=== PATIENT | female | born 1940 | race Two or more races ===

== ENCOUNTER 2020-03-21 16:48 | Emergency (ER) | payer MEDICARE, OTHER ==
[~2020-03-21] VITALS: Ht 157.5 cm; Wt 53.5 kg
--- NOTE | 2020-03-21 17:00 | NUR ---
PT ANGELLA FROM [facility]. PER REPORT FROM MEDICS, PT HAD A GROUND LEVEL FALL FROM THE FACILITY AND HIT THE BACK OF HER HEAD. PT HAS A DRIED SCAB NOTED ON THE BACK OF THE HEAD. PT DENIES ANY PAIN OR DISCOMFORT AT THIS TIME. VS CHECKED. AWAITING MD SALAZAR.
--- NOTE | 2020-03-21 17:10 | NUR ---
PT WAS SEEN BY
--- NOTE | 2020-03-21 17:32 | NUR ---
PT OUT FOR CT SCAN OF THE HEAD
--- NOTE | 2020-03-21 18:24 | NUR ---
CALLED DR VELAZQUEZ FOR A PEER TO PEER WITH THE PA. LEFT A MESSAGE. AWAITING HIS CALL BACK
--- NOTE | 2020-03-21 18:45 | NUR ---
CALLED [facility] FOR BLS TRANSFER ETA 45MINS.
--- NOTE | 2020-03-21 18:53 | NUR ---
REPORT GIVEN TO DARREN DEAL AT [facility] FOR CONTINUITY OF CARE . AMBULANCE ET IS 45 MINUTES
--- NOTE | 2020-03-21 19:17 | NUR ---
REPORT GIVEN TO [facility] EMT BALDO FOR MOUNIKA
--- NOTE | 2020-03-21 19:18 | NUR ---
Patient discharged to SNF in stable condition. Written and verbal after care instructions given to snf rn and emt. verbalizes understanding of instruction.
[2020-03-21 19:20] VITALS: BP 121/71
== END 2020-03-21 19:20 | disposition home or self-care (01) ==
LOC: ER 16:54
DX: S00.01XA Abrasion of scalp, initial encounter (principal); M54.2 Cervicalgia; F03.90 Unspecified dementia, unspecified severity, without behavioral disturbance, psychotic disturbance, mood disturbance, and anxiety; J44.9 Chronic obstructive pulmonary disease, unspecified; F41.9 Anxiety disorder, unspecified; I12.9 Hypertensive chronic kidney disease with stage 1 through stage 4 chronic kidney disease, or unspecified chronic kidney disease; E11.22 Type 2 diabetes mellitus with diabetic chronic kidney disease; N18.9 Chronic kidney disease, unspecified; W19.XXXA Unspecified fall, initial encounter; Y93.89 Activity, other specified; Y92.098 Other place in other non-institutional residence as the place of occurrence of the external cause; Y99.8 Other external cause status
CPT/HCPCS: 70450; 72125; 99285; A6403

== ENCOUNTER 2020-08-27 17:15 | Inpatient (IN) | payer MEDICARE, OTHER ==
[~2020-08-27] VITALS: Ht 160 cm; Wt 51.3 kg
--- NOTE | 2020-08-27 17:27 | NUR ---
DR. GRIGGS AT BS FOR EVAL.
--- NOTE | 2020-08-27 17:37 | NUR ---
[facility] FOR "INCREASED CONFUSION" NOTED TODAY. PT AAOX2, VSS. RR EVEN & UNLABORED. DENIES CP, SOB, DIZZINESS, N/V AT THIS TIME. PLACED ON NETWORK DESIGNER, SR. WILL CONT TO MONITOR.
[2020-08-27] MEDS ORDERED: FAMO20TA8 PO (17:40)
[2020-08-27] MEDS ORDERED: MAGN400O6 PO (17:40)
[2020-08-27] MEDS ORDERED: MAG-55 PO (17:40)
[2020-08-27] MEDS ORDERED: TEMA15CA5 PO (17:40)
[2020-08-27] MEDS ORDERED: DOCU-141 PO (17:40)
[2020-08-27] MEDS ORDERED: ACET325T53 PO (17:40)
[2020-08-27] MEDS ORDERED: LOSA25TA27 PO (17:40)
[2020-08-27] MEDS ORDERED: LATA2.5D15 OP (17:40)
[2020-08-27] MEDS ORDERED: LEVE500T9 PO (17:40)
[2020-08-27] MEDS ORDERED: NA P133E RC (17:40)
[2020-08-27] MEDS ORDERED: BISA10SU11 RC (17:40)
[2020-08-27] MEDS ORDERED: AMLO10TA4 PO (17:40)
[2020-08-27] MEDS ORDERED: OLAN5TAB3 PO (17:40)
[2020-08-27 17:42] LABS: BASOPHILS # (AUTO) 0.1 /CMM (0.0-0.2); BASOPHILS % (AUTO) 0.8 % (0.0-2.0); EOSINOPHILS % (AUTO) 1.3 % (0.0-6.0); HEMATOCRIT 42 % (33-45); HEMOGLOBIN 13.6 g/dL (11.5-14.8); LYMPHOCYTES # (AUTO) 2.3 /CMM (0.8-4.8); LYMPHOCYTES % (AUTO) 32.3 % (20.0-44.0); MEAN CORPUSCULAR HGB CONC 33 g/dl (31.0-36.0); MEAN CORPUSCULAR VOLUME 90 fL (82-100); MONOCYTES # (AUTO) 0.6 /CMM (0.1-1.30); MONOCYTES % (AUTO) 8.6 % (2.0-12.0); NEUTROPHILS # (AUTO) 4.1 /CMM (1.8-8.9); PLATELET COUNT (AUTO) 305 /CMM (150-450); WHITE BLOOD COUNT (AUTO) 7.2 K/uL (4.3-11.0)
[2020-08-27 18:08] LABS: ALANINE AMINOTRANSFERASE 27 U/L (12-78); ALBUMIN 3.6 g/dL (3.4-5.0); ALCOHOL, BLOOD < 3 mg/dL (0-0); ALKALINE PHOSPHATASE 63 U/L (46-116); ASPARTATE AMINOTRANSFERASE 19 U/L (15-37); BILIRUBIN,DIRECT 0.1 mg/dL (0.0-0.2); BILIRUBIN,TOTAL 0.1 mg/dL (0.2-1.0); CALCIUM, SERUM 8.9 mg/dL (8.5-10.1); CARBON DIOXIDE 28 mmol/L (21-32); CHLORIDE 105 mmol/L (98-107); CREATININE 0.8 mg/dL (0.6-1.3); GLUCOSE 110 mg/dL (74-106); POTASSIUM 4.1 mmol/L (3.5-5.1); SODIUM SERUM 143 mmol/L (136-145); TOTAL PROTEIN, SERUM 7.9 g/dL (6.4-8.2); UREA NITROGEN, BLOOD 26 mg/dL (7-18)
[2020-08-27 18:09] LABS: ACETAMINOPHEN 0 ug/ml (10-30)
--- NOTE | 2020-08-27 18:26 | NUR ---
urine collected and taken to the lab
--- NOTE | 2020-08-27 18:45 | NUR ---
CALLED [employer] SUBSTATION OPERATOR APPRENTICE FOR EVAL. ETA 1 HOUR.
[2020-08-27] MEDS ORDERED: NA PHOS,M-B/NA PHOS,DI-BA 1 EA ENEMA RC PRN (19:00)
[2020-08-27] MEDS ORDERED: BISACODYL SUPP (10 MG) 10 MG/SUPP.RECT SUPP.RECT RC PRN (19:00)
[2020-08-27] MEDS ORDERED: MAGNESIUM HYDROXIDE 30 ML UDC PO PRN ×2 (19:00→22:30)
[2020-08-27 19:08] LABS: BILIRUBIN,URINE NEGATIVE (NEGATIVE); COLOR,URINE YELLOW (YELLOW); LEUKOCYTE ESTERASE ,URINE SMALL (NEGATIVE); NITRITE, URINE NEGATIVE (NEGATIVE); PH,URINE 6.5 (5.0-8.0); PROTEIN,URINE NEGATIVE (NEGATIVE); UGLUCOSE NEGATIVE (NEGATIVE); UROBILINOGEN,URINE 0.2 EU/dL (0.2)
[2020-08-27 19:18] LABS: BACTERIA,URINE RARE /HPF (None Seen); SQUAMOUS EPITHELIAL CELL,UR 0-2 /HPF (None Seen)
--- NOTE | 2020-08-27 20:12 | NUR ---
F/U CBC WITH LAB, STATES MACHINE UNDER MAINTENANCE, SPOKE TO ÁNGEL, WILL BE RELEASED BY CLS IN 5MINS
--- NOTE | 2020-08-27 21:00 | NUR ---
REPORT GIVEN, PT TRANSFERED.
[2020-08-27 21:46] VITALS: BP 136/81
[2020-08-27] MEDS ORDERED: MAG HYDROX/AL HYDROX/SIMETH 30 ML UDC PO PRN (22:30)
[2020-08-27] MEDS ORDERED: BLOOD SUGAR DIAGNOSTIC 1 EACH STRIP IN ONE (22:30)
[2020-08-27] MEDS ORDERED: LORAZEPAM 0.5 MG TABLET PO PRN (22:30)
--- NOTE | 2020-08-27 22:34 | NUR ---
RN NOTES : NOTIFY SUPERVISIOR FOR MED LATOANOPROST EYE DROPS NOT AVAILABLE AT THIS TIME, PER SUPERVISIOR I WILL CHECK AND CALL BACK IF MEDS AVILABLE ,
[2020-08-27] MEDS ORDERED: LATANOPROST EYE DROP 0.005% 2.5 ML BOTTLE ONE (23:07)
[2020-08-27] MEDS: LATANOPROST EYE DROP 0.005% 2.5 ML BOTTLE OP SCH (23:16)
--- NOTE | 2020-08-27 23:23 | NUR ---
ADMISSION NOTES: ADMITTED THIS 79Y/O FEMALE PATIENT ADMIT FROM [facility] ER /INTIALLY FROM [facility] , PT. ADMITTED TO GPS ON 5150 GD HOLD , PER HOLD, INCREASED CONFUSION AND NON COMPLIANT WITH MEDICATION WANDERS AT THE FACILITY,UPON FACE TO FACE ASSESSMENT PATIENT IS A&O X 1,2 ,DISORGNIZED,DISORIENTED DISHELVED, BLUNTED AFFECT COOPERTIVE AT THIS TIME ,DENIES SI /HI AT THIS TIME, PT. IS POOR HISTORIAN, POOR INSIGHT ,POOR JUDGEMENT , PT. REFUSED TO SIGNS ADMISSION CONSENT PAPERS ,DUE TO CONFUSED, BOTH MD AWARE AND NOTIFIED OF THE ADMISSION, BELONGINGS CONTRABAND WERE DONE ,PT. RIGHTS DISCUSS BY WAREHOUSE FREIGHT HANDLER , PROVIDE THE PT. WITH HANDBOOK, AND MEDICATIONS GUIDE, ENVIRONMENTAL SAFETY CHECK DONE, ENCOURAGED PT. VERBALIZED ANY FEELING CONCERN TO STAFF, ORIENT TO UNIT POLICY, NO ACUTE DISTRESS NOTED,VITAL SIGNS WNL ,DENIES ANY PAIN AT THIS TIME,WILL CONTINUE TO MONITOR FOR Q15 SAFETY AND BEHAVIOR.
[2020-08-28 08:00] VITALS: BP 124/64
[2020-08-28] MEDS: LEVETIRACETAM (250 MG) 250 MG TABLET PO SCH ×2 (09:54→18:10)
[2020-08-28] MEDS: LOSARTAN POTASSIUM 25 MG TABLET PO SCH (09:55)
[2020-08-28] MEDS: FAMOTIDINE (20 MG) 20 MG TABLET PO SCH (09:55)
[2020-08-28] MEDS: DOCUSATE SODIUM 100 MG CAPSULE PO SCH (09:55)
[2020-08-28] MEDS: AMLODIPINE BESYLATE 10 MG TABLET PO SCH (09:56)
[2020-08-28 16:00] VITALS: BP 100/76
--- NOTE | 2020-08-28 16:28 | NUR ---
WALKING ABOUT UNIT,CONFUSED,BUT MED COMPLIANT.
[2020-08-28] MEDS: OLANZAPINE 5 MG TABLET PO SCH (18:10)
[2020-08-28] MEDS: DIVALPROEX SODIUM 125 MG TABLET.DR PO SCH ×2 (18:10→21:15)
[2020-08-28] MEDS: ACETAMINOPHEN 325 MG TABLET PO PRN (19:43)
[2020-08-28 19:58] VITALS: BP 109/67
--- NOTE | 2020-08-28 19:58 | NUR ---
GPS RN NOTES: PATIENT C/O HEADACHE. TYLENOL 325MG 2TABS/650MG GIVEN PO PRN ORDERED AT 1944. WILL CONTINUE TO MONITOR.
[2020-08-28] MEDS: LATANOPROST EYE DROP 0.005% 2.5 ML BOTTLE OP SCH (21:17)
[2020-08-29 06:38] LABS: BASOPHILS # (AUTO) 0.1 /CMM (0.0-0.2); BASOPHILS % (AUTO) 1.1 % (0.0-2.0); EOSINOPHILS % (AUTO) 3.3 % (0.0-6.0); HEMATOCRIT 40 % (33-45); HEMOGLOBIN 12.8 g/dL (11.5-14.8); LYMPHOCYTES # (AUTO) 2.3 /CMM (0.8-4.8); LYMPHOCYTES % (AUTO) 44.4 % (20.0-44.0); MEAN CORPUSCULAR HGB CONC 32 g/dl (31.0-36.0); MEAN CORPUSCULAR VOLUME 92 fL (82-100); MONOCYTES # (AUTO) 0.7 /CMM (0.1-1.30); MONOCYTES % (AUTO) 12.9 % (2.0-12.0); NEUTROPHILS % (AUTO) 38.3 % (43.0-81.0); PLATELET COUNT (AUTO) 258 /CMM (150-450); RED BLOOD CELL COUNT(AUTO) 4.31 MIL/uL (4.0-5.2); WHITE BLOOD COUNT (AUTO) 5.2 K/uL (4.3-11.0)
--- NOTE | 2020-08-29 06:42 | NUR ---
GPS RN CLOSING NOTES: PATIENT SLEEPING COMFORTABLY IN BED. SLEPT 6HR THIS SHIFT. MED COMPLIANT THIS SHIFT. NO S/S OF DISTRESS. RESPIRATION EVEN AND UNLABORED WITH EQUAL RISE AND FALL OF THE CHEST ON ROOM AIR. ALL PATIENT CARE NEEDS HAVE BEEN MET ANTICIPATED. WILL CONTINUE TO MONITOR FOR SAFETY, MOOD AND BEHAVIOR AND ENDORSE TO AM SHIFT.
[2020-08-29 07:05] LABS: CALCIUM, SERUM 8.3 mg/dL (8.5-10.1); CREATININE 0.7 mg/dL (0.6-1.3)
[2020-08-29 08:00] VITALS: BP 119/63
[2020-08-29] MEDS: AMLODIPINE BESYLATE 10 MG TABLET PO SCH (09:00)
[2020-08-29] MEDS: LOSARTAN POTASSIUM 25 MG TABLET PO SCH (09:00)
[2020-08-29] MEDS: FAMOTIDINE (20 MG) 20 MG TABLET PO SCH (09:30)
[2020-08-29] MEDS: DOCUSATE SODIUM 100 MG CAPSULE PO SCH (09:31)
[2020-08-29] MEDS: DIVALPROEX SODIUM 125 MG TABLET.DR PO SCH ×3 (09:31→21:52)
[2020-08-29] MEDS: LEVETIRACETAM (250 MG) 250 MG TABLET PO SCH ×2 (09:31→17:37)
[2020-08-29] MEDS: OLANZAPINE 5 MG TABLET PO SCH ×2 (09:31→17:37)
[2020-08-29 16:00] VITALS: BP 124/63
[2020-08-29 20:23] VITALS: BP 102/52
[2020-08-29] MEDS: LATANOPROST EYE DROP 0.005% 2.5 ML BOTTLE OP SCH (21:52)
--- NOTE | 2020-08-30 06:24 | NUR ---
GPS RN CLOSING NOTES: PATIENT CURRENTLY SLEEPING COMFORTABLY IN BED. PATIENT SLEPT 5HR THIS SHIFT. WEEKLY SKIN ASSESSMENT DONE, PICTURES TAKEN AND PLACED IN PATIENT CHART. MED COMPLIANT THIS SHIFT. PATIENT HAS NO C/O PAIN THIS SHIFT. NO S/S OF DISTRESS. RESPIRATION EVEN AND UNLABORED WITH EQUAL RISE AND FALL OF THE CHEST ON ROOM AIR. ALL PATIENT CARE NEEDS HAVE BEEN MET ANTICIPATED. WILL CONTINUE TO MONITOR FOR SAFETY, MOOD AND BEHAVIOR AND ENDORSE TO AM SHIFT.
[2020-08-30 08:00] VITALS: BP 113/64
[2020-08-30] MEDS: AMLODIPINE BESYLATE 10 MG TABLET PO SCH (08:52)
[2020-08-30] MEDS: LEVETIRACETAM (250 MG) 250 MG TABLET PO SCH ×2 (08:52→16:53)
[2020-08-30] MEDS: DIVALPROEX SODIUM 125 MG TABLET.DR PO SCH ×3 (08:53→21:28)
[2020-08-30] MEDS: OLANZAPINE 5 MG TABLET PO SCH ×2 (08:53→16:53)
[2020-08-30] MEDS: LOSARTAN POTASSIUM 25 MG TABLET PO SCH (08:53)
[2020-08-30] MEDS: FAMOTIDINE (20 MG) 20 MG TABLET PO SCH (08:54)
[2020-08-30] MEDS: DOCUSATE SODIUM 100 MG CAPSULE PO SCH (08:54)
--- NOTE | 2020-08-30 13:35 | NUR ---
Family Contact: SW called the pts daughter, Gabi ([phone]), who stated that the pt has been increasingly agitated as her dementia progresses. Pts daughter stated that they would want the pt to return to [facility] at the time of discharge.
--- NOTE | 2020-08-30 13:45 | NUR ---
SNF Contact: EDMAR contacted Mima ([phone]) at [facility] and inquired if the pt will be accepted back at the time of discharge and Mima stated that the pt would be accepted back.
--- NOTE | 2020-08-30 14:04 | NUR ---
Initial Discharge Plan: Pt currently resides at [facility] located at [address] [place] [id number]; ([phone]). Per pt, she wants to return to her home in [place]. Per Mima at [facility], the pt can return once she is stable. EDMAR will work with the pt and the MD regarding appropriate discharge planning. SW will form a safe and proper discharge.
[2020-08-30 16:37] VITALS: BP 119/66
[2020-08-30 20:00] VITALS: BP 122/57
[2020-08-30] MEDS: ACETAMINOPHEN 325 MG TABLET PO PRN (20:29)
[2020-08-30] MEDS: LATANOPROST EYE DROP 0.005% 2.5 ML BOTTLE OP SCH (21:28)
--- NOTE | 2020-08-31 06:24 | NUR ---
GPS RN CLOSING NOTES: PATIENT CURRENTLY SLEEPING. PATIENT SLEPT 8HR AND WAS MED COMPLIANT THIS SHIFT. NO S/S OF DISTRESS. RESPIRATION EVEN AND UNLABORED WITH EQUAL RISE AND FALL OF THE CHEST ON ROOM AIR. ALL PATIENT CARE NEEDS HAVE BEEN MET ANTICIPATED. WILL CONTINUE TO MONITOR FOR SAFETY, MOOD AND BEHAVIOR AND ENDORSE TO AM SHIFT.
[2020-08-31 08:00] VITALS: BP 112/66
[2020-08-31] MEDS: AMLODIPINE BESYLATE 10 MG TABLET PO SCH (09:00)
[2020-08-31] MEDS: LOSARTAN POTASSIUM 25 MG TABLET PO SCH (09:00)
[2020-08-31] MEDS: DOCUSATE SODIUM 100 MG CAPSULE PO SCH (09:26)
[2020-08-31] MEDS: OLANZAPINE 5 MG TABLET PO SCH ×2 (09:26→17:38)
[2020-08-31] MEDS: LEVETIRACETAM (250 MG) 250 MG TABLET PO SCH ×2 (09:26→17:38)
[2020-08-31] MEDS: DIVALPROEX SODIUM 125 MG TABLET.DR PO SCH ×3 (09:26→21:39)
[2020-08-31] MEDS: FAMOTIDINE (20 MG) 20 MG TABLET PO SCH (09:26)
[2020-08-31 16:00] VITALS: BP 131/66
[2020-08-31 20:37] VITALS: BP 113/65
[2020-08-31] MEDS: TEMAZEPAM 7.5 MG CAPSULE PO PRN (21:38)
[2020-08-31] MEDS: LATANOPROST EYE DROP 0.005% 2.5 ML BOTTLE OP SCH (22:46)
[2020-09-01 08:00] VITALS: BP 140/83
[2020-09-01] MEDS: DOCUSATE SODIUM 100 MG CAPSULE PO SCH (08:41)
[2020-09-01] MEDS: OLANZAPINE 5 MG TABLET PO SCH ×2 (08:41→16:32)
[2020-09-01] MEDS: AMLODIPINE BESYLATE 10 MG TABLET PO SCH (08:42)
[2020-09-01] MEDS: LOSARTAN POTASSIUM 25 MG TABLET PO SCH (08:42)
[2020-09-01] MEDS: FAMOTIDINE (20 MG) 20 MG TABLET PO SCH (08:42)
[2020-09-01] MEDS: DIVALPROEX SODIUM 125 MG TABLET.DR PO SCH ×3 (08:43→21:05)
[2020-09-01] MEDS: LEVETIRACETAM (250 MG) 250 MG TABLET PO SCH ×2 (08:44→16:32)
[2020-09-01 16:00] VITALS: BP 115/50
[2020-09-01] MEDS: ACETAMINOPHEN 325 MG TABLET PO PRN (18:49)
--- NOTE | 2020-09-01 18:49 | NUR ---
RN NOTE: PAIN PT C/O 3/10 HEAD ACHE. MEDICATED WITH TYLENOL 650 MG PO PRN.
[2020-09-01 21:03] VITALS: BP 118/73
[2020-09-01] MEDS: TEMAZEPAM 7.5 MG CAPSULE PO PRN (21:05)
[2020-09-01] MEDS: LATANOPROST EYE DROP 0.005% 2.5 ML BOTTLE OP SCH (21:05)
[2020-09-02 08:00] VITALS: BP 129/69
[2020-09-02] MEDS: DOCUSATE SODIUM 100 MG CAPSULE PO SCH (08:20)
[2020-09-02] MEDS: OLANZAPINE 5 MG TABLET PO SCH ×2 (08:20→16:23)
[2020-09-02] MEDS: FAMOTIDINE (20 MG) 20 MG TABLET PO SCH (08:20)
[2020-09-02] MEDS: DIVALPROEX SODIUM 125 MG TABLET.DR PO SCH ×3 (08:20→21:35)
[2020-09-02] MEDS: LEVETIRACETAM (250 MG) 250 MG TABLET PO SCH ×2 (08:21→16:23)
[2020-09-02] MEDS: AMLODIPINE BESYLATE 10 MG TABLET PO SCH (08:21)
[2020-09-02] MEDS: LOSARTAN POTASSIUM 25 MG TABLET PO SCH (08:21)
[2020-09-02 16:00] VITALS: BP 121/63
[2020-09-02 20:57] VITALS: BP 131/53
[2020-09-02] MEDS: LATANOPROST EYE DROP 0.005% 2.5 ML BOTTLE OP SCH (21:35)
[2020-09-02] MEDS: TEMAZEPAM 7.5 MG CAPSULE PO PRN (21:37)
[2020-09-03 08:00] VITALS: BP 121/70
[2020-09-03] MEDS: DIVALPROEX SODIUM 125 MG TABLET.DR PO SCH ×3 (08:26→20:27)
[2020-09-03] MEDS: FAMOTIDINE (20 MG) 20 MG TABLET PO SCH (08:26)
[2020-09-03] MEDS: LOSARTAN POTASSIUM 25 MG TABLET PO SCH (08:26)
[2020-09-03] MEDS: OLANZAPINE 5 MG TABLET PO SCH ×2 (08:26→16:08)
[2020-09-03] MEDS: LEVETIRACETAM (250 MG) 250 MG TABLET PO SCH ×2 (08:26→16:08)
[2020-09-03] MEDS: DOCUSATE SODIUM 100 MG CAPSULE PO SCH (08:26)
[2020-09-03] MEDS: AMLODIPINE BESYLATE 10 MG TABLET PO SCH (08:27)
[2020-09-03] MEDS: ACETAMINOPHEN 325 MG TABLET PO PRN ×2 (11:40→20:21)
--- NOTE | 2020-09-03 11:42 | NUR ---
GPS/RN-NOTES PATIENT C/O HEADACHE AND REQUESTING TYLENOL.TYLENOL 650MG P.O GIVEN PRN ORDER. WILL CONT. MONITORING FOR SAFETY.
--- NOTE | 2020-09-03 11:49 | NUR ---
Probable Cause Hearing: Pts [id number] hold was upheld for grave disability.
[2020-09-03 16:00] VITALS: BP 147/74
[2020-09-03 19:55] VITALS: BP 108/62
--- NOTE | 2020-09-03 20:22 | NUR ---
GPS/RN-NOTES PATIENT C/O HEADACHE AND REQUESTING TO TAKE TYLENOL.TYLENOL 650MG P.O ADMINISTERED PRN ORDER. WILL CONT. MONITORING FOR SAFETY.
[2020-09-03 20:28] VITALS: BP 108/62
[2020-09-03] MEDS: LATANOPROST EYE DROP 0.005% 2.5 ML BOTTLE OP SCH (21:08)
[2020-09-03] MEDS: TEMAZEPAM 7.5 MG CAPSULE PO PRN (22:51)
--- NOTE | 2020-09-03 22:52 | NUR ---
RN NOTE: INSOMNIA PATIENT VERBALIZED THAT SHE IS UNABLE TO SLEEP & REQUESTED TO TAKE SLEEPING MEDICINE. PRN RESTORIL 7.5 MG 1 CAP PO ADMINISTERED. WILL CONTINUE TO MONITOR.
[2020-09-04 08:00] VITALS: BP 126/69
[2020-09-04] MEDS: LEVETIRACETAM (250 MG) 250 MG TABLET PO SCH ×2 (08:28→16:10)
[2020-09-04] MEDS: DIVALPROEX SODIUM 125 MG TABLET.DR PO SCH ×3 (08:28→21:10)
[2020-09-04] MEDS: DOCUSATE SODIUM 100 MG CAPSULE PO SCH (08:28)
[2020-09-04] MEDS: FAMOTIDINE (20 MG) 20 MG TABLET PO SCH (08:28)
[2020-09-04] MEDS: AMLODIPINE BESYLATE 10 MG TABLET PO SCH (08:28)
[2020-09-04] MEDS: OLANZAPINE 5 MG TABLET PO SCH ×2 (08:28→16:10)
[2020-09-04] MEDS: LOSARTAN POTASSIUM 25 MG TABLET PO SCH (08:29)
[2020-09-04 16:00] VITALS: BP 100/59
[2020-09-04 20:05] VITALS: BP 104/49
[2020-09-04 20:37] VITALS: BP 104/49
[2020-09-04] MEDS: LATANOPROST EYE DROP 0.005% 2.5 ML BOTTLE OP SCH (21:42)
[2020-09-04] MEDS: TEMAZEPAM 7.5 MG CAPSULE PO PRN (22:36)
--- NOTE | 2020-09-04 22:40 | NUR ---
RN NOTE: INSOMNIA PATIENT STATED THAT SHE IS UNABLE TO SLEEP, IN & OUT OF HER BED FREQUENTLY, PT. REQUESTED TO TAKE SLEEPING MEDICINE, PRN RESTORIL 7.5 MG 1 CAP PO GIVEN. WILL CONTINUE TO MONITOR.
[2020-09-05 08:00] VITALS: BP_SYST 122; BP_SYST 143; BP_DIAS 62; BP_DIAS 71
[2020-09-05] MEDS: FAMOTIDINE (20 MG) 20 MG TABLET PO SCH (09:41)
[2020-09-05] MEDS: OLANZAPINE 5 MG TABLET PO SCH ×2 (09:41→17:04)
[2020-09-05] MEDS: DOCUSATE SODIUM 100 MG CAPSULE PO SCH (09:41)
[2020-09-05] MEDS: AMLODIPINE BESYLATE 10 MG TABLET PO SCH (09:41)
[2020-09-05] MEDS: LEVETIRACETAM (250 MG) 250 MG TABLET PO SCH ×2 (09:41→17:04)
[2020-09-05] MEDS: LOSARTAN POTASSIUM 25 MG TABLET PO SCH (09:42)
[2020-09-05] MEDS: DIVALPROEX SODIUM 125 MG TABLET.DR PO SCH ×3 (09:42→21:26)
[2020-09-05] MEDS: ENSURE ENLIVE CHOC 237 ML CAN PO SCH ×2 (11:32→17:00)
[2020-09-05 20:44] VITALS: BP 135/74
[2020-09-05] MEDS: LATANOPROST EYE DROP 0.005% 2.5 ML BOTTLE OP SCH (21:26)
[2020-09-05] MEDS: TEMAZEPAM 7.5 MG CAPSULE PO PRN (22:24)
--- NOTE | 2020-09-05 22:24 | NUR ---
GPS RN NOTES PATIENT REQUESTED SLEEP MEDICATION. RESTORIL 7.5MG 1CAP GIVEN PO 22:24. WILL CONTINUE TO MONITOR.
--- NOTE | 2020-09-06 06:36 | NUR ---
GPS RN CLOSING NOTES: PATIENT SLEEPING COMFORTABLY IN BED. PATIENT SLEPT 8HR THIS SHIFT. WEEKLY SKIN ASSESSMENT DONE, SKIN INTACT. NO C/O PAIN THIS SHIFT. NO S/S OF DISTRESS. RESPIRATION EVEN AND UNLABORED WITH EQUAL RISE AND FALL OF THE CHEST ON ROOM AIR. ALL PATIENT CARE NEEDS HAVE BEEN MET ANTICIPATED. BED IN LOWEST POSITION AND LOCKED WITH SIDE RAILS UP X2. WILL CONTINUE TO MONITOR FOR SAFETY, MOOD AND BEHAVIOR AND ENDORSE TO AM SHIFT.
[2020-09-06] MEDS: ENSURE ENLIVE CHOC 237 ML CAN PO SCH ×2 (07:51→16:13)
[2020-09-06 08:00] VITALS: BP 137/73
[2020-09-06] MEDS: DOCUSATE SODIUM 100 MG CAPSULE PO SCH (08:19)
[2020-09-06] MEDS: DIVALPROEX SODIUM 125 MG TABLET.DR PO SCH ×3 (08:20→21:19)
[2020-09-06] MEDS: LOSARTAN POTASSIUM 25 MG TABLET PO SCH (08:20)
[2020-09-06] MEDS: LEVETIRACETAM (250 MG) 250 MG TABLET PO SCH ×2 (08:21→16:14)
[2020-09-06] MEDS: OLANZAPINE 5 MG TABLET PO SCH ×2 (08:21→16:14)
[2020-09-06] MEDS: AMLODIPINE BESYLATE 10 MG TABLET PO SCH (08:21)
[2020-09-06] MEDS: FAMOTIDINE (20 MG) 20 MG TABLET PO SCH (08:21)
--- NOTE | 2020-09-06 14:10 | NUR ---
Family Contact: SW called the pts daughter, Gabi ([phone]), and informed her that the pt is going to be discharged tomorrow back to [facility].
[2020-09-06 16:00] VITALS: BP 115/67
[2020-09-06 20:07] VITALS: BP 117/56
[2020-09-06] MEDS: LATANOPROST EYE DROP 0.005% 2.5 ML BOTTLE OP SCH (21:19)
[2020-09-06] MEDS: TEMAZEPAM 7.5 MG CAPSULE PO PRN (23:19)
--- NOTE | 2020-09-06 23:20 | NUR ---
GPS/RN NOTES PATIENT REQUESTING FOR SLEEPING AID. PATIENT GIVEN RESTORIL 7.5MG PO. PATIENT V/S ARE STABLE, PATIENT IN NO ACUTE DISTRESS.
[2020-09-07 08:00] VITALS: BP 122/57
[2020-09-07] MEDS: ENSURE ENLIVE CHOC 237 ML CAN PO SCH (08:03)
[2020-09-07 08:34] VITALS: BP 122/57
[2020-09-07] MEDS: LEVETIRACETAM (250 MG) 250 MG TABLET PO SCH (08:34)
[2020-09-07] MEDS: DOCUSATE SODIUM 100 MG CAPSULE PO SCH (08:34)
[2020-09-07] MEDS: LOSARTAN POTASSIUM 25 MG TABLET PO SCH (08:34)
[2020-09-07] MEDS: FAMOTIDINE (20 MG) 20 MG TABLET PO SCH (08:34)
[2020-09-07] MEDS: OLANZAPINE 5 MG TABLET PO SCH (08:34)
[2020-09-07] MEDS: DIVALPROEX SODIUM 125 MG TABLET.DR PO SCH (08:34)
[2020-09-07] MEDS: AMLODIPINE BESYLATE 10 MG TABLET PO SCH (08:34)
--- NOTE | 2020-09-07 11:25 | NUR ---
SNF Contact: EDMAR faxed an inquiry to [facility] with attn to Mima to the fax number: [phone].
--- NOTE | 2020-09-07 12:22 | NUR ---
Discharge Note: Pt will be discharged to [facility] (SNF) located at [address] [place] [address]; ([phone]). Pts daughter, Gabi ([phone]), was made aware of the discharge. Pt will be transported via [facility] at 12PM. Upon discharge, the pt appears to be in a euthymic mood and presented with a congruent affect. Pt appears to be alert and oriented x4 (time, place, self and situation). Pt appears to be well groomed and appropriately dressed. Pt denies having any suicidal or homicidal ideation as well as auditory or visual hallucinations. Pt will be under the care of her psychiatrist, Dr. Cline, located at [address], [address] [place] [address]; and hotel services sales representative, Dr. Viera, located at [address], [address], [place] [address], . Pt signed the Choice of Vendor form and the multidisciplinary exit care form was done, printed, signed, and given to the patient.
--- NOTE | 2020-09-07 13:00 | NUR ---
DIGITAL ACCOUNT MANAGER NOTE- PT DC AT THIS TIME TO [facility] VIA GURNEY AND AMBULANCE. PT VS STABLE, ALERT ORIENTED TO PERSON PLACE CONFUSED CALM DIRECTABLE DENIES SI HI AH VH. BELONGINGS GIVEN TO PT., ID [id number] REMOVED, REPORT CALLED TO FACILITY AND REVIEWED W AMBULANCE STAFF. SKIN INTACT, REFUSED FLU AND PNA VACCS. ASSISTED OFF UNIT BY STAFF
== END 2020-09-07 13:00 | disposition still patient (30) | DRG 885 ==
LOC: ER 17:19 → GPS 21:13
PROVIDERS: ADMIT Psychiatry & Neurology Psychiatry; ATTEND Nurse Practitioner Family
DX: F29 Unspecified psychosis not due to a substance or known physiological condition (principal); N18.9 Chronic kidney disease, unspecified; F03.91 Unspecified dementia, unspecified severity, with behavioral disturbance; N39.0 Urinary tract infection, site not specified; F41.9 Anxiety disorder, unspecified; I12.9 Hypertensive chronic kidney disease with stage 1 through stage 4 chronic kidney disease, or unspecified chronic kidney disease; E11.22 Type 2 diabetes mellitus with diabetic chronic kidney disease; J44.9 Chronic obstructive pulmonary disease, unspecified; Z79.899 Other long term (current) drug therapy; R79.89 Other specified abnormal findings of blood chemistry
CPT/HCPCS: 36415; 70450-TC; 71045-TC; 80048-TC; 80061-TC; 80076-TC; 81001; 82962-TC; 84484-TC; 85025-TC; 87081-TC; 87086-TC; 97110-TC; 97116-TC; 97530-TC; C9803; G0480

== ENCOUNTER 2021-03-12 21:46 | Inpatient (IN) | payer MEDICARE, OTHER ==
[~2021-03-12] VITALS: Ht 157.5 cm; Wt 49.0 kg
[~2021-03-12 21:46] MED LIST: ACET325T53 PO; AMLO10TA4 PO; BISA10SU11 RC; DOCU-141 PO; FAMO20TA8 PO; LATA2.5D15 OP; LEVE500T9 PO; LOSA25TA27 PO; MAG-55 PO; MAGN400O6 PO; NA P133E RC; OLAN5TAB3 PO; TEMA15CA5 PO
--- NOTE | 2021-03-12 22:00 | NUR ---
PATIENT BIBPA FROM [facility] C/O GENERALIZED WEAKNESS. PATIENT IS A/O X 1, RR EVEN AND UNLABORED, NO SOB NOTED. PATIENT CONNECTED TO SUPERVISOR NURSE AND POX. PATIENT NOTED WITH NO ACUTE DISTRESS AT THIS TIME.
[2021-03-12 22:41] LABS: BASOPHILS # (AUTO) 0.1 K/uL (0.0-0.2); BASOPHILS % (AUTO) 0.6 % (0.0-2.0); EOSINOPHILS % (AUTO) 0.8 % (0.0-6.0); HEMATOCRIT 40 % (33-45); LYMPHOCYTES % (AUTO) 20.9 % (20.0-44.0); MEAN CORPUSCULAR HGB CONC 32 g/dl (31.0-36.0); MEAN CORPUSCULAR VOLUME 95 fL (82-100); MONOCYTES # (AUTO) 0.7 K/uL (0.1-1.30); MONOCYTES % (AUTO) 6.9 % (2.0-12.0); NEUTROPHILS # (AUTO) 6.9 K/uL (1.8-8.9); NEUTROPHILS % (AUTO) 70.8 % (43.0-81.0); PLATELET COUNT (AUTO) 236 K/uL (150-450); WHITE BLOOD COUNT (AUTO) 9.8 K/uL (4.3-11.0)
--- NOTE | 2021-03-12 22:42 | NUR ---
URINE COLLECTED AND SENT TO LAB
[2021-03-12 23:08] LABS: CALCIUM, SERUM 8.3 mg/dL (8.5-10.1); CARBON DIOXIDE 31 mmol/L (21-32); CHLORIDE 121 mmol/L (98-107); CREATININE 0.8 mg/dL (0.6-1.3); GLUCOSE 141 mg/dL (74-106); POTASSIUM 3.5 mmol/L (3.5-5.1); UREA NITROGEN, BLOOD 21 mg/dL (7-18)
[2021-03-12 23:15] LABS: SODIUM SERUM 158 mmol/L (136-145)
[2021-03-12 23:17] LABS: ALANINE AMINOTRANSFERASE 58 U/L (12-78); ALBUMIN 2.3 g/dL (3.4-5.0); ALKALINE PHOSPHATASE 57 U/L (46-116); ASPARTATE AMINOTRANSFERASE 27 U/L (15-37); BILIRUBIN,DIRECT 0.2 mg/dL (0.0-0.2); BILIRUBIN,TOTAL 0.6 mg/dL (0.2-1.0); LIPASE 105 U/L (73-393); TOTAL PROTEIN, SERUM 6.4 g/dL (6.4-8.2)
--- NOTE | 2021-03-12 23:18 | NUR ---
Na 158
--- NOTE | 2021-03-12 23:51 | NUR ---
CALLED [facility] PAGED BRIANNE CHUNG NP FOR ADMISSION
[2021-03-13 00:03] LABS: BILIRUBIN,URINE SMALL (NEGATIVE); COLOR,URINE YELLOW (YELLOW); LEUKOCYTE ESTERASE ,URINE NEGATIVE (NEGATIVE); NITRITE, URINE NEGATIVE (NEGATIVE); PROTEIN,URINE NEGATIVE (NEGATIVE); UGLUCOSE NEGATIVE (NEGATIVE)
[2021-03-13 00:11] LABS: BACTERIA,URINE Moderate /HPF (None Seen); MUCUS,URINE Few /LPF (None Seen); SQUAMOUS EPITHELIAL CELL,UR Many /HPF (None Seen)
--- NOTE | 2021-03-13 00:15 | NUR ---
Patient is resting comfortably in bed with eyes closed. Easily aroused. VSS
[2021-03-13] MEDS ORDERED: MAGNESIUM HYDROXIDE 30 ML UDC PO PRN ×2 (00:30)
[2021-03-13] MEDS ORDERED: ACETAMINOPHEN 325 MG TABLET PO PRN ×2 (00:30)
[2021-03-13] MEDS ORDERED: IV D5W 1,000 ML IV PRN (00:30)
[2021-03-13] MEDS ORDERED: Z GUARD REMEDY 2 OZ OINT TP PRN (00:30)
[2021-03-13] MEDS ORDERED: NA PHOS,M-B/NA PHOS,DI-BA 1 EA ENEMA RC PRN (00:30)
[2021-03-13] MEDS ORDERED: ONDANSETRON HCL/PF 4 MG/2 ML VIAL IVP PRN (00:30)
[2021-03-13] MEDS ORDERED: BISACODYL SUPP (10 MG) 10 MG/SUPP.RECT SUPP.RECT RC PRN (00:30)
[2021-03-13] MEDS ORDERED: ZOLPIDEM TARTRATE 5 MG TABLET PO PRN (00:30)
[2021-03-13] MEDS ORDERED: MAG HYDROX/AL HYDROX/SIMETH 30 ML UDC PO PRN (00:30)
--- NOTE | 2021-03-13 01:20 | NUR ---
Patient is resting comfortably in bed with eyes closed. Easily aroused. VSS
--- NOTE | 2021-03-13 02:20 | NUR ---
pt attached to monitor and pox, breathing evenly and unlabored
--- NOTE | 2021-03-13 03:15 | NUR ---
COVID SWAB SENT TO LAB
--- NOTE | 2021-03-13 03:20 | NUR ---
pt attached to monitor and pox. Breathing evenly and unlabored
[2021-03-13] MEDS ORDERED: TEMAZEPAM 7.5 MG CAPSULE PO PRN (03:30)
--- NOTE | 2021-03-13 05:08 | NUR ---
Patient is resting comfortably in bed with eyes closed. Easily aroused. VSS
[2021-03-13] MEDS ORDERED: MAG HYDROX/AL HYDROX/SIMETH 30 ML UDC ONE (06:04)
[2021-03-13] MEDS: MAG HYDROX/AL HYDROX/SIMETH 30 ML UDC PO SCH ×3 (06:07→17:14)
[2021-03-13 06:29] LABS: BASOPHILS % (AUTO) 0.4 % (0.0-2.0); EOSINOPHILS % (AUTO) 0.7 % (0.0-6.0); HEMATOCRIT 41 % (33-45); HEMOGLOBIN 13.4 g/dL (11.5-14.8); LYMPHOCYTES # (AUTO) 1.8 K/uL (0.8-4.8); LYMPHOCYTES % (AUTO) 19.2 % (20.0-44.0); MEAN CORPUSCULAR HGB CONC 33 g/dl (31.0-36.0); MEAN CORPUSCULAR VOLUME 96 fL (82-100); MONOCYTES # (AUTO) 0.6 K/uL (0.1-1.30); MONOCYTES % (AUTO) 6.6 % (2.0-12.0); NEUTROPHILS # (AUTO) 6.8 K/uL (1.8-8.9); NEUTROPHILS % (AUTO) 73.1 % (43.0-81.0); PLATELET COUNT (AUTO) 231 K/uL (150-450); RED BLOOD CELL COUNT(AUTO) 4.31 MIL/uL (4.0-5.2); WHITE BLOOD COUNT (AUTO) 9.3 K/uL (4.3-11.0)
--- NOTE | 2021-03-13 07:19 | NUR ---
CALLED FOR REPORT, NURSE STILL RECEIVING ENDORSEMENTS
[2021-03-13 07:23] LABS: THYROID STIMULATING HORMONE 1.85 uIU/mL (0.358-3.74)
[2021-03-13 07:30] LABS: ALBUMIN 2.4 g/dL (3.4-5.0); BILIRUBIN,TOTAL 0.7 mg/dL (0.2-1.0); CALCIUM, SERUM 8.6 mg/dL (8.5-10.1); CREATININE 0.8 mg/dL (0.6-1.3); MAGNESIUM 2.5 mg/dL (1.8-2.4); PHOSPHORUS 3.9 mg/dL (2.5-4.9); POTASSIUM 3.7 mmol/L (3.5-5.1); TOTAL PROTEIN, SERUM 6.8 g/dL (6.4-8.2)
--- NOTE | 2021-03-13 07:51 | NUR ---
report given to Chris DEAL for wilmer.
--- NOTE | 2021-03-13 09:06 | NUR ---
RN NOTE Patient received from ER via gurney, she is alert to stimuli, awake, responds to simple questions. On room air, no respiratory distress, no SOB. IV line RFA with no s/sx of infiltration, Safety precautions implemented, bed locked in lowest position, call light within reach.
--- NOTE | 2021-03-13 09:09 | NUR ---
wheeled patient via gurney accompanied by RN and emt in no distress. RN assigned to patient at bedside to assume care.
[2021-03-13] MEDS: FAMOTIDINE (20 MG) 20 MG TABLET PO SCH (10:02)
[2021-03-13] MEDS: LOSARTAN POTASSIUM 25 MG TABLET PO SCH (10:04)
[2021-03-13] MEDS: AMLODIPINE BESYLATE 10 MG TABLET PO SCH (10:05)
[2021-03-13] MEDS: DOCUSATE SODIUM 100 MG CAPSULE PO SCH (10:05)
[2021-03-13] MEDS: LEVETIRACETAM (250 MG) 250 MG TABLET PO SCH ×2 (10:06→23:01)
[2021-03-13 12:00] VITALS: BP 136/84
[2021-03-13] MEDS: CEFTRIAXONE 1 G in IV D5W 50 ML IV SCH (13:52)
[2021-03-13 18:00] VITALS: BP 128/75
--- NOTE | 2021-03-13 19:00 | NUR ---
RN OPENING NOTES RECEIVED REPORT FROM OUTGOING NURSE. PATIENT IN BED ALERT ORIENTED X1. WITH IV ACCESS AT L FA G #20 PATENT FLUSHES WELL. WITH ONGOING IVF OF D5NS @ 100CC/HR. NO SIGN OF DISTRESS AND DISCOMFORT AT THIS TIME. SAFETY PRECAUTION IN PLACE. HOB BED ELEVATED. BED ON LOWEST POSITION AND LOCKED. CALL LIGHT WITHIN REACH. WILL CONTINUE TO MONITOR THE PATIENT CLOSELY.
--- NOTE | 2021-03-13 19:04 | NUR ---
RN CLOSING NOTE Patient is A/O x1, qatari speaking responds to simple questions, lethargic. Telereadin sinus rhythm. LFA #20G with no s/sx of infiltration running D5 @100cc/hr. AM/PM care rendered, wound care rendered. Safety precautions implemented, bed locked in lowest position, call light within reach.
[2021-03-13 20:00] VITALS: BP 130/72
[2021-03-13] MEDS: ENOXAPARIN SODIUM 40 MG/0.4 ML DISP.SYRIN SQ SCH (21:47)
[2021-03-13] MEDS: LATANOPROST EYE DROP 0.005% 2.5 ML BOTTLE OP SCH (22:08)
[2021-03-13 22:40] LABS: CALCIUM, SERUM 8.2 mg/dL (8.5-10.1); CREATININE 0.8 mg/dL (0.6-1.3); MAGNESIUM 2.3 mg/dL (1.8-2.4); PHOSPHORUS 2.8 mg/dL (2.5-4.9); POTASSIUM 3.3 mmol/L (3.5-5.1)
[2021-03-13 22:52] LABS: THYROID STIMULATING HORMONE 3.33 uIU/mL (0.358-3.74); URIC ACID 4.6 mg/dL (2.6-7.2)
--- NOTE | 2021-03-13 23:10 | NUR ---
RN NOTES NOTED PATIENT POCKETING HER MEDICATION WILL ORDER ST EVALUATION FOR SAFETY OF THE PATIENT. WILL CONTINUE TO MONITOR THE PATIENT.
[2021-03-13] MEDS: IV D5W 1,000 ML IV PRN (23:44)
[2021-03-14] VITALS: BP 116/71
--- NOTE | 2021-03-14 00:40 | NUR ---
RN NOTES MAALOX 30ML HELD DUE TO PATIENT POCKETING HER MEDICATION. FOR ST EVALUATION FOR SAFETY THIS MORNING. WILL CONTINUE TO MONITOR
[2021-03-14 04:00] VITALS: BP 139/72
[2021-03-14] MEDS: MAG HYDROX/AL HYDROX/SIMETH 30 ML UDC PO SCH ×4 (06:00→18:00)
--- NOTE | 2021-03-14 06:00 | NUR ---
RN NOTES MAALOX 30 ML NOT GIVEN DUE TO PATIENT POCKETING MEDICATION ON HER MOUTH. FOR ST SALAZAR TODAY FOR PATIENT SAFETY. WILL CONTINUE TO MONITOR PATIENT CLOSELY
[2021-03-14 06:35] LABS: BASOPHILS % (AUTO) 0.3 % (0.0-2.0); HEMATOCRIT 36 % (33-45); HEMOGLOBIN 11.7 g/dL (11.5-14.8); LYMPHOCYTES # (AUTO) 2.4 K/uL (0.8-4.8); LYMPHOCYTES % (AUTO) 25.8 % (20.0-44.0); MEAN CORPUSCULAR HGB CONC 33 g/dl (31.0-36.0); MEAN CORPUSCULAR VOLUME 95 fL (82-100); MONOCYTES # (AUTO) 0.5 K/uL (0.1-1.30); MONOCYTES % (AUTO) 5.6 % (2.0-12.0); NEUTROPHILS # (AUTO) 6.1 K/uL (1.8-8.9); NEUTROPHILS % (AUTO) 66.3 % (43.0-81.0); PLATELET COUNT (AUTO) 198 K/uL (150-450); WHITE BLOOD COUNT (AUTO) 9.2 K/uL (4.3-11.0)
[2021-03-14 06:45] LABS: CREATININE 0.6 mg/dL (0.6-1.3); MAGNESIUM 2.1 mg/dL (1.8-2.4); PHOSPHORUS 2.7 mg/dL (2.5-4.9); POTASSIUM 3.3 mmol/L (3.5-5.1)
--- NOTE | 2021-03-14 06:52 | NUR ---
RN CLOSING NOTES PATIENT IN BED. STILL WITH IV ACCESS ON LFA G# 20 PATENT FLUSHES WELL. WITH IVF OF D5 @100 CC/HR. NO SOB, NO PAIN NOTED AT THIS SHIFT. SAFETY MEASURES IN PACE, HOB ELEVATED, BED ON LOWEST POSITION AND LOCKED, CALL LIGHT WITHIN REACH AT ALL TIMES. KEPT CLEAN AND DRY. ENDORSED
--- NOTE | 2021-03-14 07:08 | NUR ---
RN OPENING NOTES Patient is Asleep, arousable to stimuli, no respiratory distress, no SOB. On IV hydration D5 100cc/hr with no s/sx of infiltration left FA. Safety precautions implemented, bed locked in lowest position, call light within reach.
[2021-03-14 08:00] VITALS: BP 116/61
[2021-03-14] MEDS: LOSARTAN POTASSIUM 25 MG TABLET PO SCH (09:10)
[2021-03-14] MEDS: DOCUSATE SODIUM 100 MG CAPSULE PO SCH (09:11)
[2021-03-14] MEDS: AMLODIPINE BESYLATE 10 MG TABLET PO SCH (09:11)
[2021-03-14] MEDS: FAMOTIDINE (20 MG) 20 MG TABLET PO SCH (09:11)
[2021-03-14] MEDS: LEVETIRACETAM (250 MG) 250 MG TABLET PO SCH ×2 (09:11→21:08)
[2021-03-14] MEDS ORDERED: POTASSIUM CHLORIDE 20 MEQ TAB.PRT.SR PO SCH (09:30)
[2021-03-14] MEDS: IV D5W 1,000 ML IV PRN ×2 (11:11→22:43)
[2021-03-14 12:00] VITALS: BP 98/54
[2021-03-14] MEDS: CEFTRIAXONE 1 G in IV D5W 50 ML IV SCH (12:08)
[2021-03-14 16:00] VITALS: BP 102/52
--- NOTE | 2021-03-14 19:00 | NUR ---
RN NOTES RECEIVED REPORT FROM MORNING NURSE. PATIENT IN BED AWAKE. WITH IV ACCESS ON L FA G20 PATENT FLUSHES WELL. WITH ONGOING IVF OF D5W 100 CC/HR. PATIENT NOT IN DISTRESS, NO SOB NOTED. HOB ELEVATED, BED ON LOWEST POSITION AND LOCKED, SIDE RAILS UP FOR SAFETY, CALL LIGHT WITHIN REACH. WILL CONTINUE TO MONITOR THE PATIENT CLOSELY
--- NOTE | 2021-03-14 19:30 | NUR ---
RN CLOSING NOTES Patient is awake, alert and oriented x1, kiswahili speaking-speaks few words. On room air, no respiratory distress, no SOB. Sinus rhythm. AM/PM carendered. Poor oral intake <25% for all meals. On IV hydration D5 @100cc/hr, LFA IV site with no s/sx of infiltration, safety precautions implemented, bed locked in lowest position, call light within reach.
[2021-03-14 20:00] VITALS: BP 100/52
[2021-03-14] MEDS: ENOXAPARIN SODIUM 40 MG/0.4 ML DISP.SYRIN SQ SCH (21:09)
[2021-03-14] MEDS: LATANOPROST EYE DROP 0.005% 2.5 ML BOTTLE OP SCH (21:11)
[2021-03-15] VITALS: BP 93/56
[2021-03-15] MEDS: MAG HYDROX/AL HYDROX/SIMETH 30 ML UDC PO SCH ×4 (00:42→17:00)
[2021-03-15 04:00] VITALS: BP 114/57
--- NOTE | 2021-03-15 06:24 | NUR ---
RN CLOSING NOTES PATIENT IN BED, CZECH SPEAKING A/O X1. WITH IV ACCESS INTACT FLUSHES WELL, ON CONTINOUS IV FLUIDS OF D5W 2 100 Addendum: 03/15/21 at 0640 by LUZ DUBOIS RN WITH CONTINOUS IVF OF D5W @100CC/HR. PATIENT IN ROOM AIR TOLERATING WELL NO SOB NOTED, NO DISTRESS, NO PAIN NOTED THIS SHIFT. ENCOURAGE TO EAT BY GIVING SOME APPLESAUCE AND PUDDING WHILE AWAKE. ALL DUE MEDS GIVEN ORDERED. SAFETY MEASURES IN PLACE, HOB ELEVATED, BED ON LOWEST POSITION AND LOCKED, CALL LIGHT WITHIN REACH. ENDORSE
[2021-03-15 07:16] LABS: CALCIUM, SERUM 8.4 mg/dL (8.5-10.1); CARBON DIOXIDE 27 mmol/L (21-32); CHLORIDE 107 mmol/L (98-107); CREATININE 0.5 mg/dL (0.6-1.3); GLUCOSE 180 mg/dL (74-106); POTASSIUM 3.4 mmol/L (3.5-5.1); SODIUM SERUM 142 mmol/L (136-145); UREA NITROGEN, BLOOD 8 mg/dL (7-18)
--- NOTE | 2021-03-15 07:30 | NUR ---
MOTEL KEEPER AM NOTES RECEIVED PT IN BED, ASLEEP, RESPONDS TO NAME AND TOUCH, AO X 1, SPEAKS BOLIVIAN, ON ROOM AUR, NO SOB, NOT IN ANY RESPIRATORY DISTRESS, RESPIRATION UNLABORED. NO SIGNS OF PAIN OR GRIMACING, ONGOING D5W AT 100 ML/HR TO LEFT FA 20G, SITE CLEAR. SEE NURSING FLOWSHEET FOR SKIN ISSUES. SAFETY PRECAUTION IN PLACE. HOB BED ELEVATED. BED ON LOWEST POSITION AND LOCKED. CALL LIGHT WITHIN REACH. WILL CONTINUE TO MONITOR.
[2021-03-15 08:00] VITALS: BP 111/66
--- NOTE | 2021-03-15 08:36 | NUR ---
SAY LEMUS DC TELEMETRY PER DR. GARRETT
[2021-03-15] MEDS: FAMOTIDINE (20 MG) 20 MG TABLET PO SCH (08:38)
[2021-03-15] MEDS: LEVETIRACETAM (250 MG) 250 MG TABLET PO SCH ×2 (08:38→21:40)
[2021-03-15] MEDS: DOCUSATE SODIUM 100 MG CAPSULE PO SCH (08:38)
[2021-03-15] MEDS: LOSARTAN POTASSIUM 25 MG TABLET PO SCH (08:39)
[2021-03-15] MEDS: AMLODIPINE BESYLATE 10 MG TABLET PO SCH (08:39)
[2021-03-15] MEDS ORDERED: POTASSIUM CHLORIDE 20 MEQ TAB.PRT.SR PO ONE (09:30)
--- NOTE | 2021-03-15 09:30 | NUR ---
RN NOTES DUE MEDS GIVEN SPEECH THERAPIST AT BEDSIDE.
[2021-03-15] MEDS: IV D5W 1,000 ML IV PRN (09:46)
[2021-03-15] MEDS: CEFTRIAXONE 1 G in IV D5W 50 ML IV SCH (12:53)
[2021-03-15] MEDS: ENSURE ENLIVE CHOC 237 ML CAN PO SCH ×2 (13:20→16:58)
--- NOTE | 2021-03-15 14:41 | NUR ---
RN NOTE NUTRITION INFORMED ABOUT ORDER FOR CALORIE COUNT. PER NUTRITION WILL START TOMORROW AM.
[2021-03-15 16:00] VITALS: BP 95/55
[2021-03-15] MEDS: IV D5/0.45 NACL 1,000 ML IV PRN (16:55)
--- NOTE | 2021-03-15 18:30 | NUR ---
RN CLOSING NOTES PT IS LYING IN BED WITH HOB AT 30 DEGREES. RESPONDS TO NAME AND TOUCH, AO X 1, SPEAKS SAO TOMEAN, ON ROOM AIR SAT 98%, NO SOB, NOT IN ANY RESPIRATORY DISTRESS, RESPIRATION UNLABORED. NO SIGNS OF PAIN OR GRIMACING DURING SHIFT. ONGOING D5 1/2 AT 50 ML/HR TO LEFT FA 20G, SITE CLEAR. SAFETY PRECAUTION IN PLACE. HOB BED ELEVATED. BED ON LOWEST POSITION AND LOCKED. ALL NEEDS MET. PM CARE DONE. ASSISTED WITH TURNING AND REPOSITIONING. CALL LIGHT WITHIN REACH. NO OTHER SIGNIFICANT CHANGE IN CONDITION. WILL ENDORSE TO FABRICATION MACHINE OPERATOR FOR MOUNIKA.
[2021-03-15 20:00] VITALS: BP 106/55
[2021-03-15] MEDS: LATANOPROST EYE DROP 0.005% 2.5 ML BOTTLE OP SCH (21:40)
[2021-03-15] MEDS: ENOXAPARIN SODIUM 40 MG/0.4 ML DISP.SYRIN SQ SCH (21:43)
[2021-03-16] MEDS: MAG HYDROX/AL HYDROX/SIMETH 30 ML UDC PO SCH ×4 (00:42→18:47)
[2021-03-16 04:00] VITALS: BP 131/71
[2021-03-16 07:39] LABS: CALCIUM, SERUM 8.3 mg/dL (8.5-10.1); CREATININE 0.6 mg/dL (0.6-1.3); POTASSIUM 3.8 mmol/L (3.5-5.1)
--- NOTE | 2021-03-16 08:00 | NUR ---
RECEIVED PATIENT ASLEEP IN BED, EASY TO AROUSE & WILL RESPOND TO NAME AND TOUCH, A & O X 1, UNDERSTANDS FRENCH SOME RWANDAN, ROOM AIR SAT 99%, NO SOB, NOT IN ANY RESPIRATORY DISTRESS, RESPIRATION UNLABORED, NO SIGNS OR SYMPTOMS OF PAIN NO GRIMACING NOTED DURING REPOSITIONING AND CHANGE, CONTINUOUS D5 1/2 AT 50 ML/HR TO LEFT FA 20G, OMTACT PATENT, SITE CLEAR. SAFETY PRECAUTION IN PLACE. HOB BED ELEVATED. BED ON LOWEST POSITION AND LOCKED. ALL NEEDS MET. AM CARE PROVIDED, CALL LIGHT WITHIN REACH, ENCOURAGED TO EAT AND DRINK FLUIDS, WOULD DRINK VERY LITTLE, NO ASPIRATIONS NOTED, NEEDS FULL ASSISTANCE TO EAT AND DRINK AT THIS TIME. APPEARS NOT VERY INTERESTED IN EATING BREAKFAST, GAVE PO MEDICATIONS CRUSHED WITH APPLESAUCE.
[2021-03-16] MEDS: LEVETIRACETAM (250 MG) 250 MG TABLET PO SCH ×2 (08:06→20:47)
[2021-03-16] MEDS: DOCUSATE SODIUM 100 MG CAPSULE PO SCH (08:07)
[2021-03-16] MEDS: ENSURE ENLIVE CHOC 237 ML CAN PO SCH ×2 (08:07→16:47)
[2021-03-16] MEDS: FAMOTIDINE (20 MG) 20 MG TABLET PO SCH (08:07)
[2021-03-16] MEDS: AMLODIPINE BESYLATE 10 MG TABLET PO SCH (08:11)
[2021-03-16] MEDS: LOSARTAN POTASSIUM 25 MG TABLET PO SCH (11:41)
[2021-03-16] MEDS: CEFTRIAXONE 1 G in IV D5W 50 ML IV SCH (11:42)
[2021-03-16 12:52] VITALS: BP 110/68
--- NOTE | 2021-03-16 18:26 | NUR ---
FAMILY VISITED TODAY AND HELPED ENCOURAGE PATIENT TO EAT AND DRINK EFFECTIVE SHE DID EAT AND DRINK MORE WHEN DAUGHTER FED AND GAVE HER LIQUIDS, NO ASPIRATIONS NOTED, REPOSITIONED Q 2 HOURS FOR COMFORT AND PILLOWS PLACED UNDER BI-LATERAL LEGS, BI-LATERAL ARMS TO RELIEVE ANY PRESSURE, NO S/S OF ANY SIGNIFICANT PAIN, NO SOB NOTED AND NO LABORED BREATHING, IV INTACT PATENT AND FLOWING WELL, ALL MD ORDERS CARRIED OUT AND CALL LIGHT IN REACH, BED LOW TO FLOOR FOR SAFETY, WHEELS LOCKED.
--- NOTE | 2021-03-16 19:30 | NUR ---
RN NOTE PT RECEIVED IN BED. PT IS ON ROOM AIR SHOWING NO S/S OF RESP DISTRESS/SOB. PT IS NOT ALERT, NON-VERBAL. SKIN INTACT. IV ACCESS NOTED ON LEFT FOREARM #20. LINE FLUSHED, PATENT, AND INTACT WITH NO SIGNS AND SYMPTOMS OF INFILTRATION. D5 1/2 NS RUNNING AT 50 ML/HR. ALL SAFETY MEASURES IMPLEMENTED. WILL CONTINUE TO MONITOR AND ASSESS FOR ANY CHANGES THROUGHOUT THE SHIFT.
[2021-03-16 20:00] VITALS: BP 111/64
[2021-03-16] MEDS: IV D5/0.45 NACL 1,000 ML IV PRN (20:41)
[2021-03-16] MEDS: ENOXAPARIN SODIUM 40 MG/0.4 ML DISP.SYRIN SQ SCH (20:44)
[2021-03-16] MEDS: LATANOPROST EYE DROP 0.005% 2.5 ML BOTTLE OP SCH (21:41)
--- NOTE | 2021-03-17 00:29 | NUR ---
RN NOTE PT IS NOT ALERT AND UNABLE TO SWALLOW MEDICATION AT THIS TIME. OPENS EYES AND CLOSES EYES AFTER WAKING UP. VOLLEYBALL REFEREE LANE MADE AWARE.
[2021-03-17 04:00] VITALS: BP 106/59
[2021-03-17] MEDS: MAG HYDROX/AL HYDROX/SIMETH 30 ML UDC PO SCH ×3 (05:51→11:33)
--- NOTE | 2021-03-17 05:51 | NUR ---
RN NOTE ATTEMPTED TO ADMINISTER SCHEDULED 0600 MAALOX, BUT PATIENT NOT SWALLOWING MEDICATION AND POCKETING IN MOUTH. SENIOR RD ENGINEER LANE AWARE.
--- NOTE | 2021-03-17 06:42 | NUR ---
RN NOTES NO CHANGES IN PT CONDITION DURING SHIFT. PT IS ON ROOM AIR SHOWING NO S/S OF RESP DISTRESS. BREATHING EVEN AND UNLABORED. IV LINE ON LEFT FOREARM #20 RUNNING D51/2 NS AT 50 ML/HR. LINES PATENT AND INTACT. ALL DUE MEDS GIVEN ORDERED. PT KEPT CLEAN AND COMFORTABLE. ALL SAFETY MEASURES IMPLEMENTED. CALL LIGHT WITHIN REACH. BED ALARM ON. BED LOCKED AND IN LOWEST POSITION. WILL ENDORSE TO MORNING SHIFT RN FOR MOUNKIA.
[2021-03-17 07:27] LABS: CALCIUM, SERUM 7.8 mg/dL (8.5-10.1); CREATININE 0.6 mg/dL (0.6-1.3); POTASSIUM 3.6 mmol/L (3.5-5.1)
[2021-03-17] MEDS: ENSURE ENLIVE CHOC 237 ML CAN PO SCH (08:00)
[2021-03-17] MEDS: AMLODIPINE BESYLATE 10 MG TABLET PO SCH (08:39)
[2021-03-17] MEDS: LEVETIRACETAM (250 MG) 250 MG TABLET PO SCH (08:39)
[2021-03-17 08:40] VITALS: BP 108/63
[2021-03-17] MEDS: LOSARTAN POTASSIUM 25 MG TABLET PO SCH (08:40)
[2021-03-17] MEDS: FAMOTIDINE (20 MG) 20 MG TABLET PO SCH (08:40)
[2021-03-17] MEDS: DOCUSATE SODIUM 100 MG CAPSULE PO SCH (08:41)
[2021-03-17] MEDS ORDERED: ALLA266C2 TP (10:25)
[2021-03-17] MEDS ORDERED: LACT-54 PO (10:25)
[2021-03-17] MEDS: CEFTRIAXONE 1 G in IV D5W 50 ML IV SCH (11:29)
== END 2021-03-17 15:32 | DRG 640 ==
LOC: ER 21:51 → UNDOADMIN 03-13 03:06 → TRANSITION 03-13 03:06 → TELE1 03-13 07:10 → UNDOADMIN 03-13 07:10 → TELE1 03-13 07:14 → MEDSG1 03-15 08:39
PROVIDERS: ADMIT Nurse Practitioner Acute Care; ATTEND Nurse Practitioner Acute Care
DX: E86.0 Dehydration (principal); G93.41 Metabolic encephalopathy; E44.0 Moderate protein-calorie malnutrition; N39.0 Urinary tract infection, site not specified; D68.59 Other primary thrombophilia; E87.0 Hyperosmolality and hypernatremia; E86.1 Hypovolemia; E88.09 Other disorders of plasma-protein metabolism, not elsewhere classified; F03.90 Unspecified dementia, unspecified severity, without behavioral disturbance, psychotic disturbance, mood disturbance, and anxiety; E11.22 Type 2 diabetes mellitus with diabetic chronic kidney disease; I12.9 Hypertensive chronic kidney disease with stage 1 through stage 4 chronic kidney disease, or unspecified chronic kidney disease; R62.7 Adult failure to thrive; Z79.899 Other long term (current) drug therapy; N18.9 Chronic kidney disease, unspecified; Z74.01 Bed confinement status; E87.6 Hypokalemia; F29 Unspecified psychosis not due to a substance or known physiological condition
CPT/HCPCS: 36415; 71045-TC; 80048-TC; 80053-TC; 80061-TC; 80076-TC; 80177; 81001; 82533; 83605-TC; 83690-TC; 83735-TC; 84100-TC; 84300-TC; 84443-TC; 84484-TC; 84550-TC; 85025-TC; 87040-TC; 87081-TC; 87086-TC; 92526; 92611-TC; C9803; G0378; J0696; J1650; J3490; J7060; J7070; U0003